=== PATIENT | female | born 1990 | race Hispanic/Latino ===

== ENCOUNTER 2016-05-05 01:43 | Emergency (ER) | payer MEDICAID ==
[2016-05-05] MEDS ORDERED: TRAMADOL 50 MG TAB ONE (02:52)
== END 2016-05-05 03:24 | disposition home or self-care (01) ==
LOC: ER 01:43
DX: S46.012A Strain of muscle(s) and tendon(s) of the rotator cuff of left shoulder, initial encounter (principal); S46.812A Strain of other muscles, fascia and tendons at shoulder and upper arm level, left arm, initial encounter; X50.9XXA Other and unspecified overexertion or strenuous movements or postures, initial encounter; Y92.69 Other specified industrial and construction area as the place of occurrence of the external cause; F17.210 Nicotine dependence, cigarettes, uncomplicated